=== PATIENT | male | born 1960 | race Caucasian/White ===

== ENCOUNTER → 2016-10-04 | Outpatient (REF) | payer OTHER | LOC: M LAB REF 16:24 | PROVIDERS: ATTEND Physician Assistant | DX: J02.9 Acute pharyngitis, unspecified (principal) ==

== ENCOUNTER → 2016-11-05 | Outpatient (CLI) | payer OTHER ==
[2016-11-05 07:36] LABS: BASO % 0.6 % (0.0-1.0); EOS # 0.3 K/mm3 (0.0-0.50); EOS % 6.1 % (0.0-3.0); LARGE UNSTAINED CELL # 0.2 K/mm3 (0.0-0.4); LARGE UNSTAINED CELL % 3.9 % (0.0-4.0); LYMPH # 1.5 K/mm3 (1.5-4.5); LYMPH % 28.6 % (24.0-44.0); MEAN CORPUSCULAR HEMOGLOBIN 32.3 pg (27.0-33.0); MEAN CORPUSCULAR HGB CONC 33.5 g/dl (32.0-36.5); MEAN CORPUSCULAR VOLUME 96.2 fl (80.0-96.0); MONO # 0.4 K/mm3 (0.0-0.8); MONO % 8.2 % (0.0-5.0); NEUTROPHILS # 2.8 K/mm3 (1.8-7.7); NEUTROPHILS % 52.6 % (36.0-66.0); PLATELET COUNT, AUTOMATED 304 k/mm3 (150-450); RED CELL DISTRIBUTION WIDTH 12.6 % (11.5-14.5); WHITE BLOOD COUNT 5.3 K/mm3 (4.0-10.0)
[2016-11-05 08:37] LABS: ERYTHROCYTE SEDIMENTATION RATE 4 mm/hr (0-20)
== END ==
LOC: M LAB 06:09
PROVIDERS: ATTEND Podiatrist
DX: Z01.89 Encounter for other specified special examinations (principal)

== ENCOUNTER → 2017-08-15 | Outpatient (CLI) | payer OTHER ==
--- NOTE | 2017-08-15 21:27 | REP ---
Clinical: Trauma. Pain. Technique: AP, lateral, bilateral oblique views of the left foot. Findings: Age-related degenerative changes to the tarsometatarsal joints. No acute fracture dislocation. No significant soft tissue swelling, subcutaneous emphysema or radiodense foreign body. Impression: No acute fracture or dislocation. Signed by Elan Min MD 08/15/2017 09:19 P
== END ==
LOC: M RAD 19:52
PROVIDERS: ATTEND Physician Assistant
DX: S99.922A Unspecified injury of left foot, initial encounter (principal); W10.8XXA Fall (on) (from) other stairs and steps, initial encounter; Y92.89 Other specified places as the place of occurrence of the external cause; Y93.89 Activity, other specified; Y99.8 Other external cause status